=== PATIENT | male | born 1955 | race Caucasian/White ===

== ENCOUNTER → 2017-11-18 15:06 | Outpatient (CLI) | payer OTHER, SELFPAY ==
[2017-11-18 17:58] LABS: Hemoglobin A1c 5.3 % (4.2-6.3)
[2017-11-20 12:24] LABS: Hep C Antibodies <0.1 s/co ratio (0.0-0.9)
== END ==
PROVIDERS: Family Provider Family Medicine; PCP Family Medicine; Visit Provider Family Medicine
DX: R73.01 Impaired fasting glucose (principal); R53.83 Other fatigue; Z92.89 Personal history of other medical treatment
CPT/HCPCS: 36415; 83036; 86803

== ENCOUNTER → 2017-11-24 15:32 | Outpatient (CLI) | payer OTHER, SELFPAY ==
--- NOTE | 2017-11-24 15:53 | EKG12_ITS ---
Test Reason : PRE OP Blood Pressure : / mmHG Vent. Rate : 078 BPM Atrial Rate : 078 BPM P-R Int : 164 ms QRS Dur : 094 ms QT Int : 372 ms P-R-T Axes : 070 049 060 degrees QTc Int : 424 ms Sinus rhythm with marked sinus arrhythmia with junctional escape complexes Nonspecific T wave abnormality Abnormal ECG Confirmed by CHIQUITA LUNA, ESTRELLA ([id number]), assistant film editor SOPHIA CROWLEY ([id number]) on 11/25/2017 8:29:49 AM Referred By: Robby Riley Confirmed By:ESTRELLA PORRAS MD
[2017-11-24 16:29] LABS: Hematocrit 41.6 % (40-54); Hemoglobin 14.8 g/dl (13.0-16.5); Mean Corp Hgb Conc 35.6 g/gl (32-36); Mean Corpuscular Hgb 32.2 pg (27.0-32.0); Mean Corpuscular Volume 90.6 fL (80-94); Mean Platelet Vol. 9.8 fl (6.2-12.0); Platelet Count 213 K/mm3 (150-450); Red Blood Count 4.59 M/mm3 (4.6-6.2); White Blood Count 5.5 K/mm3 (4.4-11.0)
[2017-11-24 16:32] LABS: Scan Indicated on CBC? Y/N NO
[2017-11-24 17:02] LABS: Anion Gap 7 (5-15); BUN 20 mg/dL (7-18); BUN/Creat Ratio 24.6 RATIO (10-20); Calcium,Total 8.7 mg/dL (8.5-10.1); Chloride 109 mmol/L (98-107); Creatinine, Serum 0.81 mg/dL (0.70-1.30); EST Glomerular Filtration Rate 102 mL/min (>60); Est Glom Filt Rate - Afr Amer 123 mL/min (>60); Glucose 134 mg/dL (74-106); Potassium 4.1 mmol/L (3.5-5.1); Sodium Level 142 mmol/L (136-145)
== END ==
PROVIDERS: Family Provider Family Medicine; PCP Family Medicine; Visit Provider Orthopaedic Surgery
DX: Z01.810 Encounter for preprocedural cardiovascular examination (principal)
CPT/HCPCS: 36415; 80048; 85027; 93005

== ENCOUNTER → 2018-05-14 11:57 | Outpatient (CLI) | payer OTHER, SELFPAY ==
[2018-05-18 16:09] LABS: Testosterone, Free 16.41 ng/dL (5.00-21.00)
[2018-05-19 08:30] LABS: Testosterone, % Free 2.93 % (1.50-4.20); Testosterone, Total 560 ng/dL (264-916)
== END ==
PROVIDERS: Family Provider Family Medicine; PCP Family Medicine; Visit Provider Family Medicine
DX: E29.1 Testicular hypofunction (principal); R53.83 Other fatigue
CPT/HCPCS: 36415; 84402; 84403

== ENCOUNTER → 2018-05-20 10:41 | Outpatient (CLI) | payer OTHER, SELFPAY ==
[2018-05-24 09:09] LABS: Testosterone, % Free 2.37 % (1.50-4.20); Testosterone, Total 405 ng/dL (264-916)
== END ==
PROVIDERS: Family Provider Family Medicine; PCP Family Medicine; Visit Provider Family Medicine
DX: E29.1 Testicular hypofunction (principal)
CPT/HCPCS: 36415; 84402; 84403

== ENCOUNTER → 2018-05-28 11:20 | Outpatient (CLI) | payer OTHER, SELFPAY ==
[2018-05-28 15:40] LABS: Absolute Lymphocyte Count 1.78 X10^3/ul (0.83-4.51); Absolute Neutrophil Count 2.6 X10^3/uL (2.0-7.7); Basophil# 0.04 X10^3/uL; Basophil% 0.8 % (0-1); Eosinophil# 0.39 X10^3/uL; Eosinophils% 7.6 % (0-5); Hematocrit 39.6 % (40-54); Hemoglobin 13.8 g/dl (13.0-16.5); Lymphocyte # 1.78 X10^3/ul (4.0); Lymphocyte % 34.9 % (19-41); Mean Corp Hgb Conc 34.8 g/gl (32-36); Mean Corpuscular Hgb 31.2 pg (27.0-32.0); Mean Corpuscular Volume 89.6 fL (80-94); Mean Platelet Vol. 9.7 fl (6.2-12.0); Monocyte# 0.29 X10^3/uL; Monocyte% 5.7 % (0-10); Neutrophil # 2.59 X10^3/uL (2.7-7.7); Neutrophil % 50.8 % (47-70); Platelet Count 268 K/mm3 (150-450); RBC Distribution Width CV 12.2 % (11.6-14.6); RBC Distribution Width SD 39.1 fl (35.1-43.9); Red Blood Count 4.42 M/mm3 (4.6-6.2); White Blood Count 5.1 K/mm3 (4.4-11.0)
[2018-05-28 15:42] LABS: POSITIVE COUNT NO; POSITIVE DIFFERENTIAL NO; POSITIVE MORPHOLOGY NO
[2018-05-28 16:11] LABS: ALB/GLOB Ratio 1.3 RATIO (0.9-2.4); AST(SGOT) 15 U/L (15-37); Alanine Aminotransfer ALT/SGPT 28 U/L (16-61); Alkaline Phosphatase 91 U/L (45-117); Anion Gap 10 (5-15); BUN 16 mg/dL (7-18); BUN/Creat Ratio 19.5 RATIO (10-20); Chloride 103 mmol/L (98-107); Creatinine, Serum 0.82 mg/dL (0.70-1.30); EST Glomerular Filtration Rate 100 mL/min (>60); Est Glom Filt Rate - Afr Amer 122 mL/min (>60); Glucose 91 mg/dL (74-106); Potassium 4.2 mmol/L (3.5-5.1); Sodium Level 141 mmol/L (136-145); Thyroid Stim Hormone (TSH) 0.97 uIU/mL (0.358-3.74)
[2018-05-29 10:00] LABS: Vitamin B12 439 pg/mL (211-911); Vitamin D,25 Hydroxy 32.1 ng/mL (29.95-100.01)
== END ==
PROVIDERS: Family Provider Family Medicine; PCP Family Medicine; Visit Provider Family Medicine
DX: I10 Essential (primary) hypertension (principal); R53.83 Other fatigue
CPT/HCPCS: 80053; 82306; 82607; 84439; 84443; 85025

== ENCOUNTER → 2018-09-01 17:25 | Outpatient (CLI) | payer OTHER, SELFPAY ==
--- NOTE | 2018-09-01 17:25 | LES_PTH ---
PATIENT: WAQAR MONAHAN LOC: [facility] U#:[id number] AGE/SX: 70/M ROOM: RE09/01/[address]: Dr. Guy Gama, : 1955 BED: DIS: SPEC #: [id number] RECD: 09/02/18 12:04 STATUS: EMMA NATASHA #: [id number] JOSTIN: 09/01/18 17:[address]: Guy Gama DEPT: SURGICAL PATHOLOGY RECD BY: Fercho Ferrell Tissues: Skin of back, NOS Procedures: Surgery Specimen Level IV HEADER OPERATION: Punch biopsy, mole back PRE-OP DIAGNOSIS: Changing nevus on back POST-OP DIAGNOSIS: Suspect SK, rule out melanoma TISSUE SUBMITTED: 5 mm punch central lower back MICROSCOPIC DIAGNOSIS Center lower back, punch biopsy: Consistent with pigmented seborrheic keratosis. Negative for melanocytic lesion. Negative for malignancy. SJ:dena 09/03/18 COMMENT Clinical correlation and appropriate followup are necessary. MICROSCOPIC DESCRIPTION Slides are reviewed. GROSS DESCRIPTION Received is one container labeled with the patient's name and not further designated. The specimen consists of a piece of baird-brown skin measuring 0.5 x 0.3 x 0.2 cm. The entire specimen is submitted in one cassette. BLANCHE:dena 09/02/18 TC:1 CPT: 22140
== END ==
PROVIDERS: Family Provider Family Medicine; PCP Family Medicine; Referring Provider Family Medicine; Visit Provider Family Medicine
DX: D22.5 Melanocytic nevi of trunk (principal)
CPT/HCPCS: 88305

== ENCOUNTER → 2018-10-26 16:02 | Outpatient (CLI) | payer OTHER, SELFPAY ==
--- NOTE | 2018-10-26 16:10 | RAD_ITS ---
STUDY: X-RAY - LUMBAR SPINE REASON FOR EXAM: Male, 63 years old. CHRONIC BACK PAIN. NKI TECHNIQUE: 5 view(s) of the lumbar spine were obtained. COMPARISON: None FINDINGS: Normal lumbar lordosis. There is multilevel endplate spondylosis of the lumbar vertebrae. There is multi-level degenerative disc disease with multi-level disc space narrowing. The soft tissue structures are unremarkable. RAD/L/S Spine Min 4 Views IMPRESSION: Degenerative changes of the spine. Electronically Signed: Amber Resendiz MD at 11:08 EST Tel , Service support ,
--- NOTE | 2018-10-26 16:10 | RAD_ITS ---
STUDY: X-RAY - CERVICAL SPINE REASON FOR EXAM: Male, 63 years old. CHRONIC BACK PAIN. NKI TECHNIQUE: 5 view(s) of the cervical spine were obtained. COMPARISON: None FINDINGS: Normal cervical lordosis. There is multi-level endplate spondylosis. There is multi-level degenerative disc disease with multilevel disc space narrowing. The soft tissue structures are unremarkable. RAD/Cerv Spine 4 or 5 Views IMPRESSION: Degenerative changes of the spine. Electronically Signed: Amber Resendiz MD at 11:08 EST Tel , Service support ,
== END ==
PROVIDERS: Family Provider Family Medicine; PCP Family Medicine; Referring Provider Family Medicine; Visit Provider Family Medicine
DX: M54.17 Radiculopathy, lumbosacral region (principal); M54.12 Radiculopathy, cervical region
CPT/HCPCS: 72050; 72110

== ENCOUNTER 2018-11-13 08:11 | Emergency (ER) | payer OTHER, SELFPAY ==
[2018-11-13 08:12] VITALS: BP 173/98; PULSE 115; RESP 24; TEMP 36.7; O2SAT 100; BMI 28.2
--- NOTE | 2018-11-13 08:21 | CT_ITS ---
STUDY: CT ABDOMEN AND PELVIS WITHOUT CONTRAST REASON FOR EXAM: Male, 63 years old. Nausea and vomiting. Right lower quadrant pain. RADIATION DOSAGE (If Supplied By Facility): CTDIvol = ( 11.23 ) mGy, DLP = ( 569.57 ) mGycm TECHNIQUE: Transaxial images were obtained from the dome of the diaphragm to the symphysis pubis without oral contrast, and without intravenous contrast. Sagittal and coronal images were reconstructed. Individualized dose optimization techniques were used for this CT. COMPARISON: None. FINDINGS: The visualized lung bases are unremarkable. Coronary artery calcification. Normal liver. Normal gallbladder and extrahepatic biliary system. Normal spleen. Normal pancreas. Normal bilateral adrenal glands. Mild degree of the right hydronephrosis due to a 3.4 mm calculus at the right ureterovesical junction. Findings suggestive of left parapelvic cysts. Nonspecific bilateral perinephric stranding. There is a small hiatal hernia. Normal small intestine. Normal colon. The appendix is visualized and appears normal. There is a 3.5 cm x 3.1 cm well-defined cystic structure in the peritoneal fat in the left upper quadrant posterior to the greater curvature of the stomach and just [place] to the tail the pancreas. This may represent a mesenteric cyst. There is scattered atherosclerotic calcification of the abdominal aorta, without a demonstrated aneurysm. Normal inferior vena cava. Normal retroperitoneum. Normal urinary bladder. There is a small umbilical hernia containing fat. There are degenerative changes of the visualized lumbar spine. Loss of the normal lumbar lordosis. CT/Abdomen/Pelvis without Cont IMPRESSION: 3.4 mm calculus at the right ureterovesical junction causing a mild degree of right hydronephrosis. Findings suggestive of left parapelvic renal cysts. There is a 3.5 cm x 3.1 cm cystic structure in the peritoneal fat in the left upper quadrant as described. This may represent a mesenteric cyst. Electronically Signed: Ziggy Mays MD at 9:26 EST , Service support ,
[2018-11-13] MEDS: 0.9% Normal Saline 1,000 ML 150 ML IV (08:27)
[2018-11-13] MEDS: Ketorolac 30 MG/ML Syringe IV (08:27)
[2018-11-13] MEDS: Ondansetron 4 MG/2 ML Vial IV (08:27)
[2018-11-13] MEDS: Morphine 4 MG/ML Syringe IV (08:27)
--- NOTE | 2018-11-13 08:28 | ED.VISSUMM ---
- ER Visit Summary Date of Service: 11/13/18 Chief Complaint: Right lower quadrant pain History of Present Illness: The patient is a 63 M who had right lower quadrant pain 2 days ago, on the . It spontaneously resolved. Pain returned today and is more severe with nausea and vomiting. He denies difficulty with urination or bowel movements. No fever. No prior abdominal surgeries. No history of kidney stones. Physical Examination: Vital signs significant for blood pressure of 173/98 and a heart rate of 115. Patient sitting upright in bed. He has difficulty finding a position of comfort. Head neck examination unremarkable. Heart is tachycardic and regular. Lungs sounds clear. Abdomen is soft with tenderness in the right lower quadrant. He has guarding. He does have CVA tenderness on the right. Test Results: CBC is normal. Chemistry studies reveal a potassium 3.4. Renal function is normal. CT flank shows a 3.4 mm calculus at the right UVJ causing mild hydronephrosis. Emergency Department Course and Treatment: Patient is given IV fluids, morphine, Toradol, Zofran. After returning from CT scan he did receive 0.5 mg of Dilaudid. On repeat evaluation patient is resting comfortably. At this time he is not been able to provide a urine sample but has been urinating without difficulty. He has not had dysuria or fever. He will be treated with [place], Zofran, and Flomax. He does take meloxicam regularly and will continue this. Patient had previously seen Dr. Garza and will be referred to Dr. West for follow-up. Treatment Plan: [] Disposition: Discharge Impression: Right ureterolithiasis This note was generated with [employer] dictation software. It may contain incorrect words, spelling, and punctuation that were not noted in review of the chart prior to signing ED Disposition - Plan for ED Patient: Chief Complaint: Abd Pain Referrals: Guy Gama DO [Primary Care Provider] -
[2018-11-13 08:35] LABS: Absolute Lymphocyte Count 2.94 X10^3/ul (0.83-4.51); Basophil# 0.06 X10^3/uL; Basophil% 0.9 % (0-1); Eosinophil# 0.27 X10^3/uL; Hematocrit 42.8 % (40-54); Hemoglobin 14.8 g/dl (13.0-16.5); Lymphocyte # 2.94 X10^3/ul (4.0); Mean Corp Hgb Conc 34.6 g/gl (32-36); Mean Corpuscular Hgb 31.1 pg (27.0-32.0); Mean Corpuscular Volume 89.9 fL (80-94); Mean Platelet Vol. 9.5 fl (6.2-12.0); Monocyte# 0.38 X10^3/uL; Monocyte% 5.7 % (0-10); Neutrophil # 3.01 X10^3/uL (2.7-7.7); Neutrophil % 45.1 % (47-70); Platelet Count 226 K/mm3 (150-450); RBC Distribution Width CV 12.2 % (11.6-14.6); RBC Distribution Width SD 39.5 fl (35.1-43.9); Red Blood Count 4.76 M/mm3 (4.6-6.2); White Blood Count 6.7 K/mm3 (4.4-11.0)
[2018-11-13 08:36] LABS: POSITIVE COUNT NO; POSITIVE DIFFERENTIAL NO; POSITIVE MORPHOLOGY NO
[2018-11-13 08:49] LABS: AST(SGOT) 14 U/L (15-37); Alanine Aminotransfer ALT/SGPT 25 U/L (16-61); Albumin, Serum 4.1 g/dL (3.2-5.0); Alkaline Phosphatase 92 U/L (45-117); Anion Gap 11 (5-15); BUN 23 mg/dL (7-18); BUN/Creat Ratio 18.7 RATIO (10-20); Bilirubin, Direct 0.14 mg/dL (0.00-0.30); Chloride 105 mmol/L (98-107); Creatinine, Serum 1.23 mg/dL (0.70-1.30); EST Glomerular Filtration Rate 63 mL/min (>60); Est Glom Filt Rate - Afr Amer 76 mL/min (>60); Estimated Creatinine Clearance 60.67 ml/min; Globulin 3.1 g/dL (2.2-4.2); Glucose 137 mg/dL (74-106); Potassium 3.4 mmol/L (3.5-5.1); Protein, Total 7.2 g/dL (6.4-8.2); Sodium Level 139 mmol/L (136-145)
[2018-11-13] MEDS: HYDROmorphone 0.5 MG/0.5 ML SYRINGE IV (09:08)
--- NOTE | 2018-11-13 10:25 | ED.DEP ---
ED Disposition - Plan for ED Patient: Disposition: Home or Assisted Living Chief Complaint: Abd Pain Instructions: ED Stone Renal W Colic Prescriptions: Hydrocodone Bitart/Apap 5-325 [[place] 5MG-325MG] 1 tablet PO Q4H PRN PRN 3 Days #14 tablet PRN Reason: Pain Ondansetron [Zofran Odt] 4 mg PO Q8H PRN PRN #10 tablet PRN Reason: Nausea Tamsulosin HCl [Flomax] 0.4 mg PO DAILY #7 capsule Referrals: Chun West MD [STAFF PHYSICIAN] - As Needed
[2018-11-13 10:33] VITALS: PULSE 73; RESP 16; O2SAT 100
[2018-11-13 10:43] LABS: Bacteria 0 SEEN /hpf (None Seen); Mucous, Urine 0 SEEN /hpf (<or=2+)
[2018-11-13 10:56] LABS: Color, Urine Yellow (Yellow); Glucose, Dipstick Normal (Normal); Ketone-Dipstick Negative (Negative); Leukocyte Esterase-Dipstick 25 /ul (Negative); Nitrite-Dipstick Negative (Negative); Occult Blood-Urine 10 /ul (Negative); Protein-Dipstick Negative (Negative); Specific Gravity, Urine 1.015 (1.002-1.030); Urine Bilirubin Dipstick Negative (Negative); Urine Clarity Sl. Cloudy (Clear); Urine Urobilinogen Normal (Normal)
[2018-11-13 11:03] LABS: Red Blood Cells-Urine 0-5 SEEN /hpf (0-5)
[2018-11-13 11:04] LABS: Squamous Epithelial Cells - UA 0-5 SEEN /hpf (0-5); White Blood Cells 0-5 SEEN /hpf (0-5)
== END 2018-11-13 10:41 | disposition home or self-care (01) ==
PROVIDERS: Emergency Provider Emergency Medicine; Family Provider Family Medicine; PCP Family Medicine
DX: N13.2 Hydronephrosis with renal and ureteral calculous obstruction (principal); I10 Essential (primary) hypertension; M19.90 Unspecified osteoarthritis, unspecified site; R00.0 Tachycardia, unspecified; Z79.82 Long term (current) use of aspirin; Z79.899 Other long term (current) drug therapy
CPT/HCPCS: 74176; 80048; 80076; 81001; 85025; 96361; 96374; 96375; 99284; J7030; A4216; J2405

== ENCOUNTER → 2018-11-18 08:33 | Outpatient (CLI) | payer OTHER, SELFPAY ==
[2018-11-13 08:12] VITALS: BMI 28.2
--- NOTE | 2018-11-18 08:55 | RAD_ITS ---
STUDY: X-RAY - ABDOMEN/PELVIS REASON FOR EXAM: Male, 63 years old. Question of ureterovesical junction stone now and bladder. TECHNIQUE: Single AP view of the abdomen / pelvis. COMPARISON: CT abdomen and pelvis without contrast November 13, 2018 FINDINGS: Non-visualized lung bases. There is an unremarkable bowel gas pattern. There is no demonstrated free abdominal air. The visualized liver, spleen and kidneys are grossly normal in size and morphology. There are calcified phleboliths in the pelvis. The small stone seen by CT at the right ureterovesical junction is not clearly identified here, possibly superimposed on the lower sacrum/coccyx. There are stable multilevel degenerative changes of the visualized lumbar spine. RAD/Abdomen Single View IMPRESSION: 1. The small stone seen previously at the right ureterovesical junction is not clearly identified here, possibly superimposed on the lower sacrum/upper coccyx. If clinical indication to document a stone in the bladder warrants additional imaging, one might consider an upright view of the pelvis, possibly with mild craniocaudal angulation to avoid superimposition of the bladder on the pubic bone, or bladder ultrasound. 2. Nonspecific bowel gas pattern. 3. Stable degenerative changes of the spine. Electronically Signed: Kiet Tomas MD at 16:53 EST , Service support ,
== END ==
PROVIDERS: Family Provider Family Medicine; PCP Family Medicine; Referring Provider Family Medicine; Visit Provider Family Medicine
DX: N20.9 Urinary calculus, unspecified (principal)
CPT/HCPCS: 74018

== ENCOUNTER → 2019-03-25 09:39 | Outpatient (CLI) | payer OTHER, SELFPAY ==
[2019-03-25 10:58] LABS: PSA,Total - Annual Screen 1.45 ng/mL (0.00-4.00)
== END ==
PROVIDERS: Family Provider Family Medicine; PCP Family Medicine; Referring Provider Nurse Practitioner Adult Health; Visit Provider Nurse Practitioner Adult Health
DX: Z12.5 Encounter for screening for malignant neoplasm of prostate (principal)
CPT/HCPCS: 36415; 84153; G0103

== ENCOUNTER → 2019-04-12 13:24 | Outpatient (CLI) | payer OTHER, SELFPAY ==
--- NOTE | 2019-04-12 13:40 | MRI_ITS ---
STUDY: MRI CERVICAL SPINE WITHOUT CONTRAST REASON FOR EXAM: Male, 63 years old. Pain and numbness for 20 years TECHNIQUE: Standardized fat and water weighted pulse sequences were obtained in the sagittal and axial planes. COMPARISON: None FINDINGS: Craniocervical junction and cervical spine are intact and aligned. There is grade 1 degenerative retrolisthesis of C3 on C4 and C5 on C6, both less than 2 mm. Marrow is normal with superimposed subchondral degenerative change. There is multilevel disc and endplate degeneration, age-appropriate. Paraspinous soft tissues are normal. There is multilevel mild spondylotic canal stenosis and cord compression, at C3-C4, C4-C5, C5-C6. There are scattered bilateral various degree foraminal stenoses. Spinal cord is normal in size and signal with minor flattening of the compressing levels. MRI/Spine Cervical (Routine) IMPRESSION: 1. Spondylosis with multilevel mild cord compression. 2. Multilevel bilateral foraminal stenosis. Electronically Signed: Maty Bo, at 15:58 EDT Tel , Service support ,
--- NOTE | 2019-04-12 14:56 | CT_ITS ---
STUDY: CT ABDOMEN AND PELVIS WITH AND WITHOUT CONTRAST REASON FOR EXAM: Male, 63 years old. Hematuria evaluation RADIATION DOSAGE (If Supplied By Facility): CTDIvol = ( 18.16 ) mGy, DLP = ( 2320.5 ) mGycm TECHNIQUE: Transaxial images were obtained from the dome of the diaphragm to the symphysis pubis without oral contrast. 100 IV Isovue 250 was administered. Sagittal and coronal images were reconstructed. Individualized dose optimization techniques were used for this CT. COMPARISON: 13 November 2018, FINDINGS: The visualized lung bases are unremarkable. The visualized portions of the heart are within normal limits. Normal liver. Normal gallbladder and extrahepatic biliary system. Normal spleen. Normal pancreas. Normal bilateral adrenal glands. There are no urinary calculi. There are no solid renal masses. There are central renal sinus cysts, a benign incidental finding. Ureters and bladder are normal. There is no intestinal obstruction. Evaluation of the gastrointestinal tract is limited due to lack of cleansing and distention. There is possibly diffuse thickening of the sigmoid, likely chronic diverticulosis. Normal abdominal aorta. Normal inferior vena cava. Normal retroperitoneum. Normal urinary bladder. Normal abdominal wall. There degenerative changes in the lumbar spine. CT/CT Abd/Pelvis W/WO Contrast IMPRESSION: 1. Unremarkable urinary system. 2. Sigmoid diverticulosis, no diverticulitis. Electronically Signed: Maty Bo, at 16:07 EDT Tel , Service support ,
[2019-04-12 15:16] LABS: EGFR FINGERSTICK > 60.0000 mL/min (>60)
== END ==
PROVIDERS: Family Provider Family Medicine; PCP Family Medicine; Referring Provider Family Medicine; Visit Provider Family Medicine
DX: R31.0 Gross hematuria (principal); M50.10 Cervical disc disorder with radiculopathy, unspecified cervical region; M50.30 Other cervical disc degeneration, unspecified cervical region
CPT/HCPCS: 72141; 74178; Q9967

== ENCOUNTER → 2020-09-13 08:18 | Outpatient (CLI) | payer OTHER, SELFPAY | PROVIDERS: PCP Family Medicine; Referring Provider Family Medicine; Visit Provider Family Medicine | DX: R00.0 Tachycardia, unspecified (principal) | CPT/HCPCS: 93225; 93226 ==

== ENCOUNTER → 2020-11-10 15:11 | Outpatient (CLI) | payer OTHER, SELFPAY ==
[2020-10-26 16:23] VITALS: BMI 29.6
[2020-11-10 17:37] LABS: Absolute Lymphocyte Count 3.35 X10^3/uL (0.83-4.51); Absolute Neutrophil Count 2.6 X10^3/uL (2.0-7.7); Basophil# 0.05 X10^3/uL; Basophil% 0.8 % (0-1); Eosinophil# 0.16 X10^3/uL; Eosinophils% 2.4 % (0-5); Hematocrit 44.9 % (40-54); Hemoglobin 15.3 g/dL (13.0-16.5); Lymphocyte # 3.35 X10^3/ul (4.0); Lymphocyte % 51.2 % (19-41); Mean Corp Hgb Conc 34.1 g/dL (32-36); Mean Corpuscular Hgb 30.8 pg (27.0-32.0); Mean Corpuscular Volume 90.3 fL (80-94); Mean Platelet Vol. 9.5 fl (6.2-12.0); Monocyte# 0.33 X10^3/uL; NRBC Flagged by Analyzer 0 % (0-5); Neutrophil # 2.63 X10^3/uL (2.7-7.7); Neutrophil % 40.3 % (47-70); Platelet Count 253 K/mm3 (150-450); RBC Distribution Width CV 11.4 % (11.6-14.6); RBC Distribution Width SD 37.8 fl (35.1-43.9); Red Blood Count 4.97 M/mm3 (4.6-6.2); White Blood Count 6.5 K/mm3 (4.4-11.0)
[2020-11-10 17:53] LABS: ALB/GLOB Ratio 1.2 RATIO (0.9-2.4); AST(SGOT) 19 U/L (15-37); Alanine Aminotransfer ALT/SGPT 36 U/L (16-61); Albumin, Serum 3.9 g/dL (3.2-5.0); Alkaline Phosphatase 96 U/L (45-117); Anion Gap 4 (5-15); BUN 18 mg/dL (7-18); BUN/Creat Ratio 19.5 RATIO (10-20); Calcium,Total 8.6 mg/dL (8.5-10.1); Chloride 104 mmol/L (98-107); Cholesterol 243 mg/dL (200); Creatinine, Serum 0.92 mg/dL (0.70-1.30); EST Glomerular Filtration Rate 87 mL/min (>60); Est Glom Filt Rate - Afr Amer 105 mL/min (>60); Globulin 3.2 g/dL (2.2-4.2); Glucose 85 mg/dL (74-106); High Density Lipoprotein 40 mg/dL; PSA,Total - Annual Screen 1.14 ng/mL (0.00-4.00); Potassium 3.7 mmol/L (3.5-5.1); Protein, Total 7.1 g/dL (6.4-8.2); Sodium Level 138 mmol/L (136-145); Triglycerides 245 mg/dL; Very Low Density Lipoprotein 49 mg/dL (5-40)
== END ==
PROVIDERS: PCP Family Medicine; Visit Provider Family Medicine
DX: Z00.00 Encounter for general adult medical examination without abnormal findings (principal); Z12.5 Encounter for screening for malignant neoplasm of prostate
CPT/HCPCS: 36415; 80053; 80061; 84153; 85025; G0103

== ENCOUNTER → 2020-11-15 06:01 | Outpatient (CLI) | payer OTHER, SELFPAY ==
[2020-10-26 16:23] VITALS: BMI 29.6
--- NOTE | 2020-11-15 06:04 | ECHOD_ITS ---
Reason For Study: PALPITATIONS Procedure This was a 2D Doppler, Color Flow transthoracic echocardiogram. The exam was of adequate technical quality. Exam performed in department. Left Ventricle Normal LV size. Left ventricular systolic function is normal. The estimated ejection fraction is 65 %. No evidence for diastolic dysfunction. No regional wall motion abnormalities noted. Right Ventricle Normal RV size. Normal systolic function. Atria Normal left atrium. Normal right atrium. No doppler evidence for ASD. Bubble contrast study negative for right to left interatrial shunt. Mitral Valve There is no mitral annular calcification. Normal mitral valve. Trivial mitral valve insufficiency. Tricuspid Valve Normal tricuspid valve. Trivial tricuspid valve insufficiency. Aortic Valve Trisinus/trileaflet aortic valve. Normal aortic valve. Pulmonic Valve The pulmonic valve is not well visualized. Great Vessels Normal sized aortic root. Pericardium/Pleural No pericardial effusion. Medication Performed a rapid injection of agitated mix of 9 cc saline and 1cc air to assess for atrial septal defect. MMode/2D Measurements & Calculations LVIDd: 5.0 cm IVSd: 0.84 cm Ao root diam: 3.1 cm LVIDs: 3.2 cm LVPWd: 0.91 cm RVDd: 3.4 cm FS: 35.4 % LAV(MOD-bp): 41.0 ml LVAd ap4: 28.7 cm2 SV(MOD-sp4): 53.8 ml LAV(MOD-bp) Indexed: 20.3 ml/m2 EDV(MOD-sp4): 78.6 ml LAV(MOD-sp2): 40.9 ml EDV(sp4-el): 81.2 ml LAV(MOD-sp4): 36.9 ml LVAs ap4: 14.3 cm2 ESV(MOD-sp4): 24.9 ml ESV(sp4-el): 23.3 ml EF(MOD-sp4): 68.4 % EF(sp4-el): 71.3 % SV(sp4-el): 57.9 ml LA A4 area: 15.5 cm2 LA dimension(2D): 3.4 cm RA A4 area: 16.0 cm2 Time Measurements MV dec time: 0.15 sec Doppler Measurements & Calculations MV E max demarco: 73.0 cm/sec Lat Peak E' Demarco: 11.2 cm/sec Med Peak E' Demarco: 8.3 cm/sec MV A max demarco: 87.4 cm/sec E/E' lat: 6.5 E/E' med: 8.7 MV E/A: 0.83 Ao V2 max: 125.2 cm/sec LV V1 max: 102.2 cm/sec PA V2 max: 87.0 cm/sec Ao max P.3 mmHg LV V1 max P.2 mmHg Interpretation Summary Left ventricular systolic function is normal. The estimated ejection fraction is 65 %. Trivial mitral valve insufficiency. Trivial tricuspid valve insufficiency. No evidence for diastolic dysfunction. Bubble contrast study negative for right to left interatrial shunt. Ordering Physician: Brooks Kruse Referring Physician: Guy Gama Performed By: Vanessa Quick RDCS, RVT
--- NOTE | 2020-11-15 13:38 | STRESSREP ---
Stress Test Report Date: 11-15-2020 Procedure: Exercise tolerance test/imaging study Indications: Palpitations/tachycardia; hyperlipidemia; hypertension; family history of CAD Consent: Per the patient Procedure: The patient exercised on a Ever protocol for 8 minutes and 18 seconds completing Stage II and 2 minutes and 18 seconds of Stage III achieving a peak heart rate of 151 bpm (98% predicted maximal heart rate) with a peak blood pressure 198/82 mmHg and a peak MET capacity of 9 METs. The baseline ECG demonstrated normal sinus rhythm. The peak exercise ECG demonstrated no obvious ECG changes. There was an isolated PVC during exercise. The functional capacity was considered good. There was no complaint of chest discomfort during exercise or recovery. The examination was discontinued secondary to dyspnea. Impression: 1. Technically adequate (percent predicted maximal heart rate greater than 85%) exercise tolerance test 2. Peak exercise ECG with no obvious ECG changes 3. There was an isolated PVC during exercise 4. Nuclear images pending Myocardial perfusion imaging study: Technique: The patient was injected with 11.8 mCi of technetium 99m Cardiolite and subsequently rest SPECT Cardiolite nuclear imaging was obtained in the horizontal long, vertical long, and short axis views. The patient exercised on a Ever protocol for 8 minutes and 18 seconds completing Stage II and 2 minutes and 18 seconds of Stage III achieving a peak heart rate of 151 bpm (98% predicted maximal heart rate) with a peak blood pressure 198/82 mmHg and a peak MET capacity of 9 METs. The patient was injected with 33.7 mCi of technetium 99m Cardiolite and subsequently stress SPECT Cardiolite nuclear imaging was obtained in the horizontal long, vertical long, and short axis views. A gated Cardiolite study at peak stress was obtained. Interpretation: Rest and stress SPECT Cardiolite nuclear imaging status post realignment, normalization, and attenuation correction, demonstrates the appearance of relative uniform tracer uptake and myocardial perfusion appearing within normal limits. There is end systolic thickening and brightening. The gated Cardiolite study demonstrates myocardial thickening and inward wall motion. The reported LVEF is 66%. Impression: 1. Rest and stress SPECT Cardiolite nuclear imaging demonstrate relative uniform tracer uptake and myocardial perfusion appearing within normal limits. 2. The gated Cardiolite study reports an LVEF of 66%. This note was generated with [employer] software. It may contain incorrect words, spelling, and punctuation that were not noted in checking the note before signing.
== END ==
PROVIDERS: PCP Family Medicine; Referring Provider Internal Medicine Cardiovascular Disease; Visit Provider Internal Medicine Cardiovascular Disease
DX: R00.2 Palpitations (principal); R00.0 Tachycardia, unspecified; I10 Essential (primary) hypertension; E78.5 Hyperlipidemia, unspecified; Z82.49 Family history of ischemic heart disease and other diseases of the circulatory system
CPT/HCPCS: 78452; 93017; 93306; A9500; A4216

== ENCOUNTER → 2021-10-10 | Outpatient (CLI) | payer OTHER, SELFPAY | END | disposition home or self-care (01) | PROVIDERS: PCP Family Medicine; Referring Provider Family Medicine; Visit Provider Family Medicine | DX: U07.1 COVID-19 (principal) | CPT/HCPCS: 87635; U0005; U0003 ==

== ENCOUNTER 2021-10-15 14:34 | Outpatient (CLI) | payer OTHER, SELFPAY ==
[2021-10-15 14:49] VITALS: BP 146/86; PULSE 58; RESP 16; TEMP 36.4; O2SAT 99; BMI 28.5
[2021-10-15] MEDS: 0.9% Saline Lock 10 ML Syringe IV (14:52)
[2021-10-15 15:58] VITALS: BP 146/76; PULSE 59; RESP 16; TEMP 36.9; O2SAT 98
[2021-10-15 16:47] VITALS: BP 135/87; PULSE 57; RESP 16; TEMP 36.8; O2SAT 98
== END 2021-10-15 17:03 | disposition home or self-care (01) ==
LOC: MS3OUT 14:35 → MS3 14:35
PROVIDERS: PCP Family Medicine; Referring Provider Nurse Practitioner Adult Health; Visit Provider Nurse Practitioner Adult Health
DX: Z23 Encounter for immunization (principal); U07.1 COVID-19
CPT/HCPCS: J7050; M0245; Q0245; A4216

== ENCOUNTER → 2022-12-10 | Outpatient (CLI) | payer OTHER, SELFPAY ==
--- NOTE | 2022-12-10 08:50 | RAD_ITS ---
INDICATION: PERSISTENT COUGH EXAMINATION/TECHNIQUE: X-RAY - XR Chest 2 Views COMPARISON: 03/20/2017. FINDINGS: LINES/DEVICES: None. LUNGS: No consolidation, edema or effusion. No pneumothorax. MEDIASTINUM AND CARDIOVASCULAR STRUCTURES: Cardiac silhouette not enlarged. Central airways and mediastinal contour are unremarkable. BONES AND SOFT TISSUES: Unremarkable. RAD/Chest PA and Lateral IMPRESSION: No radiographic evidence of acute cardiopulmonary disease. Electronically Signed: Ann Marie Magana MD at 23:55 EST Reading Location ID and State: [id number] / Tel , Service support ,
[2022-12-10 09:38] LABS: Absolute Lymphocyte Count 3.72 X10^3/uL (0.83-4.51); Absolute Neutrophil Count 2.4 X10^3/uL (2.0-7.7); Basophil# 0.04 X10^3/uL; Basophil% 0.6 % (0-1); Eosinophils% 1.5 % (0-5); Hematocrit 45.3 % (40-54); Hemoglobin 15.4 g/dL (13.0-16.5); Lymphocyte # 3.72 X10^3/ul (0.83-4.51); Lymphocyte % 56.2 % (19-41); Mean Corpuscular Hgb 30.6 pg (27.0-32.0); Mean Corpuscular Volume 90.1 fL (80-94); Mean Platelet Vol. 9.4 fl (6.2-12.0); Monocyte# 0.31 X10^3/uL; Monocyte% 4.7 % (0-10); NRBC Flagged by Analyzer 0 % (0-5); Neutrophil # 2.42 X10^3/uL (2.7-7.7); Neutrophil % 36.5 % (47-70); Platelet Count 237 K/mm3 (150-450); RBC Distribution Width CV 11.8 % (11.6-14.6); RBC Distribution Width SD 38.5 fl (35.1-43.9); Red Blood Count 5.03 M/mm3 (4.6-6.2); White Blood Count 6.6 K/mm3 (4.4-11.0)
[2022-12-10 10:12] LABS: CRP < 2.90 mg/L (0.0-3.0)
== END | disposition home or self-care (01) ==
LOC: LAB 08:33
PROVIDERS: PCP Family Medicine; Referring Provider Family Medicine; Visit Provider Family Medicine
DX: R05.9 Cough, unspecified (principal)
CPT/HCPCS: 36415; 71046; 85025; 86140

== ENCOUNTER 2023-04-07 17:10 | Emergency (ER) | payer OTHER, SELFPAY ==
[2023-04-07 17:11] VITALS: BP 134/81; PULSE 94; RESP 17; TEMP 36.6; O2SAT 99; BMI 27.3
--- NOTE | 2023-04-07 17:20 | RAD_ITS ---
EXAM: XR CHEST, 1 VIEW CLINICAL INDICATION: chest pain TECHNIQUE: Frontal view of the chest. COMPARISON: 12.10.22 FINDINGS: LUNGS AND PLEURAL SPACES: Unremarkable. No consolidation or edema. No pneumothorax. No effusion. HEART: Unremarkable. Cardiac silhouette not enlarged. MEDIASTINUM: Central airways and mediastinal contour are unremarkable. BONES/JOINTS: Unremarkable. SOFT TISSUES: Unremarkable. RAD/Chest 1 View (Portable) IMPRESSION: No radiographic evidence of acute cardiopulmonary disease. Electronically Signed: Augustus Nash MD at 17:43 EDT ,
[2023-04-07 18:18] LABS: Absolute Lymphocyte Count 3.38 X10^3/uL (0.83-4.51); Absolute Neutrophil Count 5.3 X10^3/uL (2.0-7.7); Basophil# 0.07 X10^3/uL; Basophil% 0.7 % (0-1); Eosinophil# 0.17 X10^3/uL; Eosinophils% 1.8 % (0-5); Hematocrit 42.6 % (40-54); Hemoglobin 15.1 g/dL (13.0-16.5); Lymphocyte # 3.38 X10^3/ul (0.83-4.51); Lymphocyte % 35.9 % (19-41); Mean Corp Hgb Conc 35.4 g/dL (32-36); Mean Corpuscular Hgb 31.7 pg (27.0-32.0); Mean Corpuscular Volume 89.5 fL (80-94); Mean Platelet Vol. 8.8 fl (6.2-12.0); Monocyte# 0.49 X10^3/uL; Monocyte% 5.2 % (0-10); NRBC Flagged by Analyzer 0 % (0-5); Neutrophil # 5.27 X10^3/uL (2.7-7.7); Platelet Count 249 K/mm3 (150-450); RBC Distribution Width CV 11.6 % (11.6-14.6); RBC Distribution Width SD 37.7 fl (35.1-43.9); Red Blood Count 4.76 M/mm3 (4.6-6.2); White Blood Count 9.4 K/mm3 (4.4-11.0)
[2023-04-07 18:23] VITALS: BP 121/74; PULSE 61; RESP 19; O2SAT 98
--- NOTE | 2023-04-07 18:26 | EDS_ITS ---
HPI History of Present Illness Chief Complaint: Chest Pain Informant: patient Narrative Narrative: Patient presents with chest pain. Patient states that shortly after eating lunch about noon he started to get pain and he points right to the xiphoid area. He states occasionally it radiates just to the side a little bit. It does not go to the back. He has never gotten shortness of breath nausea vomiting lightheadedness or diaphoresis. It comes and goes. It lasts about 5 seconds at a time. Nothing specifically makes it come and go. He has never had this before. He has had what sounds like possible SVT. He had a stress test about 5 years ago that was negative. He has never had a heart catheterization. He has high blood pressure but no other known risk factor for heart disease. His father had a heart attack about 81 years old. Patient does not have cholesterol diabetes or smoking history. He has no recent travel surgery immobilization personal or family history of DVT or PE. He is not short of breath and has no pleuritic pain. No hemoptysis. No leg pain or swelling. Patient did have some coughing related to lisinopril and was switched from that medicine about 3 months ago. He is not certain what is his new antihypertensive. He also had a moist cough was bringing up some sputum in the morning. His doctor put him on azithromycin and Tessalon Perles. He just finished the azithromycin yesterday and the cough is much better. He never did have blood with this. [facility] Medical History (Updated 04/07/23 @ 22:[address] Navjot Dave MD) DDD (degenerative disc disease) Essential hypertension Sinus arrhythmia Tachycardia Home Medications gabapentin 300 mg capsule 300 mg PO QHS 11/13/18 [History Last Taken Unknown] meloxicam 15 mg tablet 15 mg PO QHS 11/13/18 [History Last Taken Unknown] fluoxetine 20 mg tablet 20 mg PO DAILY 10/16/20 [History Last Taken Unknown] lisinopril 20 mg-hydrochlorothiazide 12.5 mg tablet 0.5 tab PO DAILY 10/16/20 [History Last Taken Unknown] tadalafil 5 mg tablet (Cialis) 5 mg PO DAILY PRN sexual activity 10/26/20 [History Last Taken Unknown] Allergy/AdvReac Type Severity Reaction Status Date / Time No Known Allergies Allergy Verified 04/07/23 17:12 Family History Father Heart disease Myocardial infarction Surgical History History of bilateral knee replacement History of shoulder surgery Social History Smoking Status: Never smoker alcohol intake: current details: 3-4x weekly substance use type: does not use caffeine: Yes Type: coffee Number of servings: 2 ROS ROS ED ROS Narrative A complete review of systems was performed and is negative except as documented in the history of present illness. Some specific details below. Constitutional: No recent fevers or chills. EYE: No discharge, visual complaints, or pain. ENT: No difficulty swallowing. No swelling. No pain. No reflux symptoms. CV: See history of present illness. Respiratory: See history of present illness. Cough is improving. He is not having that now. GI: No abdominal pain. No nausea vomiting diarrhea. No blood in stool. : No frequency dysuria or hematuria. Musculoskeletal: No recent trauma. No pains. No swelling. Skin: No rash. Nondiaphoretic. Neuro: No weakness or numbness. Endocrine: No polyuria or polydipsia. EXAM Physical Exam Narrative Exam Narrative: CONSTITUTIONAL: Patient is nontoxic in appearance. The patient looks co mfortable. Work of breathing looks normal. HEENT: No notable trauma. Mucous membranes moist. No sinus tenderness. No indication of pain with swallowing. EYES: No conjunctival injection. No proptosis. NECK:No JVD. No stridor. CARDIOVASCULAR: Regular rate. Regular rhythm. No notable murmur. No JVD. Normal peripheral pulses. RESPIRATORY: No respiratory distress. Breathing is unlabored. No wheezes. No rhonchi. No rales. No pain with a deep breath. No chest wall tenderness. Saturations are normal at 99% on room air showing no hypoxia. GASTROINTESTINAL: Not distended. Bowel sounds are normal. No tenderness. No guarding. No rebound. No palpable mass. No bruit is heard. GENITOURINARY: No tenderness over the bladder. No CVA tenderness. MUSCULOSKELETAL: Atraumatic. No peripheral edema. No cord. No tenderness along the deep venous system. No asymmetry. No distended veins. NEUROLOGICAL: Patient is alert and appropriate. No focal deficit noted. SKIN: No noted rashes. No diaphoresis. PSYCHIATRIC: Patient is calm. Mood is appropriate. Const Vital Signs: 04/07/23 17:11 04/07/23 18:23 04/07/23 18:23 Temperature 97.9 F Temperature Source Temporal Pulse Rate 94 61 Respiratory Rate 17 19 H Respiratory Effort Blood Pressure 134/81 H 121/74 H Blood Pressure Mean 98 89 Pulse Ox 99 98 98 Oxygen Delivery Method Room Air Room Air Room Air 04/07/23 18:23 04/07/23 20:23 Temperature Temperature Source Pulse Rate 66 Respiratory Rate 18 Respiratory Effort Normal Non-Labored Blood Pressure 145/102 H Blood Pressure Mean 116 Pulse Ox 97 Oxygen Delivery Method Room Air Heart Score History: Slightly/Non-Suspicious ECG: Normal Age: >/= 65 years Risk Factors: 1 or 2 Risk Factors Troponin: </= Normal Limit Score: 3 MDM MDM MDM Narrative Medical decision making narrative: Patient CBC shows no acute process. Patient's electrolytes are normal showing no acute process. Patient's first troponin is 5 which is normal. Patient's repeat troponin is 4 which is also normal. My independent interpretation the patient's single view AP chest x-ray shows no acute process. Final reading is no evidence of acute cardiopulmonary disease. Patient has some lower chest epigastric area pain. This may even be from recent meds. But he is off these now. I think with his low heart score negative work- up he is safe for discharge. We discussed reasons to return and follow-up. Lab Data Attestation: I reviewed the patient's lab results. Labs: Laboratory Results - last 24 hr 04/07/23 04/07/23 04/07/23 18:05 18:05 20:24 WBC 9.4 RBC 4.76 Hgb 15.1 Hct 42.6 MCV 89.5 MCH 31.7 MCHC 35.4 RDW Std Deviation 37.7 RDW Coeff of Tyler 11.6 Plt Count 249 MPV 8.8 Immature Gran % (Auto) 0.400 Neut % (Auto) 56.0 Lymph % (Auto) 35.9 Bollinger % (Auto) 5.2 Eos % (Auto) 1.8 Baso % (Auto) 0.7 Absolute Neuts (auto) 5.3 Absolute Lymphs (auto) 3.38 Nucleated RBC % 0 Sodium 141 Potassium 3.7 Chloride 108 H Carbon Dioxide 27.0 Anion Gap 6 BUN 26 H Creatinine 0.83 Estim Creat Clear Calc 82.41 Est GFR (MDRD) Af Amer 119 Est GFR (MDRD) Non-Af 98 BUN/Creatinine Ratio 31.4 H Glucose 114 H Calcium 9.1 Troponin I High Sens 5 4 Radiography Diagnostic Testing: Clinical Impression(s) from Imaging Studies Chest X-Ray 04/07/23 17:20 IMPRESSION: No radiographic evidence of acute cardiopulmonary disease. Electronically Signed: Augustus Nash MD at 17:43 EDT , EKG Initial EKG: Comments: My independent interpretation the patient's EKG done for chest pain shows a normal sinus rhythm with mild sinus arrhythmia. No ventricular ectopy. No acute ST elevation or depression. SC interval, QRS duration and QTc are normal. Discharge Plan Triage Chief Complaint: Chest Pain ED Provider: Navjot Dave Dx/Rx/DC Orders Clinical Impression: Chest pain, Epigastric pain Instructions: ED Chest Pain, Uncertain Cause Prescriptions: No Action fluoxetine 20 mg tablet 20 mg PO DAILY lisinopril-hydrochlorothiazide 20-12.5 mg tablet 0.5 tab PO DAILY tadalafil [Cialis] 5 mg tablet 5 mg PO DAILY PRN (Reason: sexual activity) meloxicam 15 MG tablet 15 mg PO QHS gabapentin 300 MG capsule 300 mg PO QHS Primary Care Provider: Guy Gama Referrals: Guy Gama, [Primary Care Provider] - 3-5 Days if not improving Disposition Disposition: Home, Self Care
[2023-04-07 18:38] LABS: Anion Gap 6 (5-15); BUN 26 mg/dL (7-18); BUN/Creat Ratio 31.4 RATIO (10-20); Calcium,Total 9.1 mg/dL (8.5-10.1); Chloride 108 mmol/L (98-107); Creatinine, Serum 0.83 mg/dL (0.70-1.30); EST Glomerular Filtration Rate 98 mL/min (>60); Est Glom Filt Rate - Afr Amer 119 mL/min (>60); Estimated Creatinine Clearance 82.41 ml/min; Glucose 114 mg/dL (74-106); Potassium 3.7 mmol/L (3.5-5.1); Sodium Level 141 mmol/L (136-145); Troponin-I HS (w/2H Reflex) 5 pg/mL (3.0-78.0)
[2023-04-07 20:13] LABS: Reflex Troponin-HS? (from REC) Y
[2023-04-07 20:23] VITALS: BP 145/102; PULSE 66; RESP 18; O2SAT 97
[2023-04-07 20:49] LABS: Troponin-I HS 4 pg/mL (3.0-78.0)
[2023-04-07 22:15] VITALS: BP 123/76
== END 2023-04-07 22:15 | disposition home or self-care (01) ==
PROVIDERS: Emergency Provider Emergency Medicine; PCP Family Medicine; Visit Provider Emergency Medicine
DX: R07.9 Chest pain, unspecified (principal); I10 Essential (primary) hypertension; R10.13 Epigastric pain; R05.9 Cough, unspecified
CPT/HCPCS: 71045; 80048; 84484; 85025; 93005; 99283; A4216

== ENCOUNTER → 2023-10-23 | Outpatient (CLI) | payer OTHER, SELFPAY ==
--- OUTSIDE RECORDS SUMMARY | 2023-10-23 09:35 | XMS RPT_ITS | CCD ---
Author Name Unknown Address [address] [place] [address] Organization [facility] Care Team Providers Care Administrative Operations Coordinator Name Role Phone LAYLAKATHLEEN Unavailable Unavailable Results Test Name Value Interpretation Reference Range Facil ity Encounters Encounter Date Encounter Type Care Provider Facility Start: 03-27-2018 End: 08-24-2018 Patient encounter procedure KATHLEEN RICH [facility] Summary Purpose Family History No Family History Records Found Advance Directives No Advanced Directives Records Found Additional Source Comments (unrecognized sect ion and content) No Status Records Found INFORMATION SOURCE (unrecogn ized section and content) FOR RECORDS PERTAINING TO PATIENTS WHO ARE OR HAVE BEEN ENROLLED IN A CHEMICAL DEPENDENCY/SUBSTANCEABUSE PROGRAM, SOME INFORMATION MAY BE OMITTED. This clinical summary was aggregated from multiple sources. Caution should be exercised in using it in the provision of clinical care. This summary normalizes information from multiple sources, and as a consequence, information in this document may materially change the coding, format and clinical context of patient data. In addition, data may be omitted in some cases. CLINICAL DECISIONS SHOULD BE BASED ON THE PRIMARY CLINICAL RECORDS. [employer] provides no warranty or guarantee of the accuracy or completeness of information in this document.
[2023-10-23 12:57] LABS: AST(SGOT) 16 U/L (15-37); Alanine Aminotransfer ALT/SGPT 29 U/L (16-61); Albumin, Serum 3.5 g/dL (3.2-5.0); Alkaline Phosphatase 93 U/L (45-117); Bilirubin, Direct 0.09 mg/dL (0.00-0.30); Cholesterol 236 mg/dL (200); High Density Lipoprotein 36 mg/dL; PSA,Total - Annual Screen 2.06 ng/mL (0.00-4.00); Protein, Total 6.5 g/dL (6.4-8.2); Triglycerides 411 mg/dL
== END | disposition home or self-care (01) ==
LOC: BFHLAB 09:10
PROVIDERS: PCP Family Medicine; Referring Provider Family Medicine; Visit Provider Family Medicine
DX: Z12.5 Encounter for screening for malignant neoplasm of prostate (principal); I10 Essential (primary) hypertension; H35.033 Hypertensive retinopathy, bilateral
CPT/HCPCS: 36415; 80061; 80076; 84153; G0103

== ENCOUNTER → 2023-11-20 | Outpatient (CLI) | payer OTHER, SELFPAY ==
--- NOTE | 2023-11-20 16:09 | RAD_ITS ---
STUDY: X-RAY CHEST REASON FOR EXAM: Male, 68 years old. cough x 2 months TECHNIQUE: Frontal and lateral views of the chest. COMPARISON: 04/07/2023. FINDINGS: The lungs are clear and expanded. There is no demonstrated pleural abnormality. Normal size heart. Normal mediastinum and adilson. Normal visualized pulmonary arteries. Normal visualized aortic arch and descending thoracic aorta. Normal visualized thoracic spine. Normal visualized ribs, clavicles, and shoulders. There is no demonstrated abnormality of the visualized soft tissue structures of the upper abdomen. RAD/Chest PA and Lateral IMPRESSION: Normal x-ray examination of the chest. Electronically Signed: Omid Morrison MD at 18:53 EST ,
== END | disposition home or self-care (01) ==
LOC: MTRAD 16:07
PROVIDERS: PCP Family Medicine; Referring Provider Family Medicine; Visit Provider Family Medicine
DX: R05.9 Cough, unspecified (principal)
CPT/HCPCS: 71046

== ENCOUNTER → 2023-12-27 | Outpatient (CLI) | payer OTHER, SELFPAY ==
--- OUTSIDE RECORDS SUMMARY | 2023-12-27 10:01 | XMS RPT_ITS | CCD ---
Author Name Unknown Address [address] [place] [address] Organization [facility] Care Team Providers Care Academic Tutor Name Role Phone KATHLEEN RICH Unavailable Unavailable Results Test Name Value Interpretation Reference Range Facil ity Encounters Encounter Date Encounter Type Care Provider Facility Start: 03-27-2018 End: 08-24-2018 Patient encounter procedure KATHLEEN RICH [facility] Summary Purpose Family History No [...] BE BASED ON THE PRIMARY CLINICAL RECORDS. [employer] provides no warranty or guarantee of the accuracy or completeness of information in this document.
[2023-12-27 10:33] LABS: AST(SGOT) 18 U/L (15-37); Alanine Aminotransfer ALT/SGPT 26 U/L (16-61); Albumin, Serum 3.7 g/dL (3.2-5.0); Alkaline Phosphatase 104 U/L (45-117); Cholesterol 153 mg/dL (200); Globulin 3.1 g/dL (2.2-4.2); High Density Lipoprotein 45 mg/dL; Protein, Total 6.8 g/dL (6.4-8.2); Triglycerides 67 mg/dL; Very Low Density Lipoprotein 13 mg/dL (5-40)
== END | disposition home or self-care (01) ==
LOC: LAB 10:00
PROVIDERS: PCP Family Medicine; Referring Provider Family Medicine; Visit Provider Family Medicine
DX: E78.5 Hyperlipidemia, unspecified (principal)
CPT/HCPCS: 36415; 80061; 80076

== ENCOUNTER 2024-06-02 12:00 | Outpatient (RCR) | payer SELFPAY ==
--- NOTE | 2024-08-13 09:26 | HP.PT.NRP ---
Patient Information Patient Information: WAQAR MONAHAN was seen in my office for initial evaluation on . The following Plan of Care was established for this patient: Last Seen Last Seen: This patient was last seen in our office . Pertinent comments regarding their Physical therapy will appear below: D/C Chart At this point I will be discontinuing this patient from physical therapy. I would be happy to see this patient again in the future if found appropriate by the physician. Thank you! SILVIA SwensonT
== END 2024-06-02 19:00 | disposition home or self-care (01) ==
LOC: PT 12:00
PROVIDERS: PCP Family Medicine
DX: R69 Illness, unspecified (principal)

== ENCOUNTER → 2024-08-13 | Outpatient (CLI) | payer OTHER, SELFPAY ==
--- NOTE | 2024-08-13 15:04 | RAD_ITS ---
INDICATION: COUGH EXAMINATION/TECHNIQUE: X-RAY - XR Chest 2 Views COMPARISON: Prior study dated: [124 FINDINGS: LINES/DEVICES: None. LUNGS: No consolidation, edema or effusion. No pneumothorax. MEDIASTINUM AND CARDIOVASCULAR STRUCTURES: Cardiac silhouette not enlarged. Central airways and mediastinal contour are unremarkable. BONES AND SOFT TISSUES: Unremarkable. RAD/Chest PA and Lateral IMPRESSION: No radiographic evidence of acute cardiopulmonary disease. Electronically Signed: Jah Salinas MD at 8:33 EDT ,
--- OUTSIDE RECORDS SUMMARY | 2024-08-13 16:36 | XMS RPT_ITS | CCD ---
Author Organization [place] [employer] [facility] Care Team Providers Care Medical Delivery Technician Name Role Phone DON MORRIS Unavailable Unavailable Results Test Name Value Interpretation Reference Range Facil ity Basic Metabolic Panlon 03-30 Anion gap 3 molar conc 12 mmol/L Normal 9-18 [facility] [place] [facility] Comment on above: Performed By: #### C BC, BMP ####[place] [phone] Calcium mass conc 9.4 mg/dL Normal 8.5-10.[address] [facility] Comment on above: Performed By: #### C BC, BMP ####[facility] [phone] Chloride molar conc 100 mmol/L Normal 97-105 [facility] [place] [facility] Comment on above: Performed By: #### C BC, BMP ####[facility] [place] [phone] CO2 molar conc 27 mmol/L Normal 22-30 [facility] [place] [facility] Comment on above: Performed By: #### C BC, BMP ####[facility] [address] [place], [place] [phone] Creatinine mass conc 0.85 mg/dL Normal 0.73-1.22 [facility] [place] [facility] Comment on above: Performed By: #### C BC, BMP ####[facility] [address], [place] [phone] eGFR- Amer. >60 Normal [facility] Comment on above: Performed By: #### C BC, BMP ####[facility] [address] [place], [place] [phone] GFR/1.73 sq M predicted among non-blacks MDRD vol rate/area (S/P/Bld) mL/min/{1.73_m2} Normal [facility] [place] [facility] Comment on above: Result Comment: eGFR (Estimated GFR) Units of measure: mL/min/1.73 meters squaredeGFR is derived from the reexpressed MDRD Study equation using the following parameters: serum creatinine, age, gender and race. The creatinine assay has been calibrated to be traceable to IDMS.An eGFR <60 mL/min/1.73m2 for >3 months is consistent with chronic kidney disease. Refer to KDOQI guidelines for clinical interpretation.In patients with unstable renal function, e.g. those with acute kidney injury, the eGFR may not accurately reflect actual GFR. Performed By: #### Martin BRAVO, BMP ####[facility] [place], [place] [phone] Glucose mass conc 88 mg/dL Normal 74-[address] [facility] Comment on above: Result Comment: The [place] Diabetes Association (ADA) provides guidance for cutoff values for fasting glucose and random glucose. The ADA defines fasting as no caloric intake for at least 8 hours. Fasting plasma glucose results between 100 to 125 mg/dL indicate increased risk for diabetes (prediabetes).Fasting plasma glucose results greater than or equal to 126 mg/dL meet the criteria for diagnosis of diabetes. In the absence of unequivocal hyperglycemia, results should be confirmed by repeat testing. In a patient with classic symptoms of hyperglycemia or hyperglycemic crisis, random plasma glucose results greater than or equal to 200 mg/dL meet the criteria for diagnosis of diabetes.Reference: Standards of Medical Care in Diabetes 2016, [place] Diabetes Association. Diabetes Care. 2016.39(Suppl 1). Performed By: #### C SHELLY, BMP ####[facility] [place], [place] [phone] Potassium molar conc 3.8 mmol/L Normal 3.7-5.1 [facility] [place] [facility] Comment on above: Performed By: #### Martin BRAVO, BMP ####[place] [id number] [place], [place] [phone] Sodium molar conc 139 mmol/L Normal 136-[address] [facility] Comment on above: Performed By: #### C BC, BMP ####[address] [phone] Urea nitrogen mass conc 16 mg/dL Normal 9-24 [facility] [place] [facility] Comment on above: Performed By: #### C BC, BMP ####[address] [phone] CBCon 03-30-2018 Absolute nRBC <0.01 Normal <0.01 [facility] [place] [facility] Comment on above: Performed By: #### C BC, BMP ####[address] [phone] Erythrocyte distribution width Auto Ratio (RBC) 11.6 % Normal 11.5-15.0 [facility] [place] [facility] Comment on above: Performed By: #### C BC, BMP ####[place] [phone] Hematocrit Auto Volume Fraction (Bld) 42.0 % Normal 39.0-51.0 [facility] [place] [facility] Comment on above: Performed By: #### C BC, BMP ####[address] [phone] Hemoglobin mass conc (Bld) 14.5 g/dL Normal 13.0-17.0 [facility] [place] [facility] Comment on above: Performed By: #### C BC, BMP ####[address] [phone] MCH Auto Entitic mass (RBC) 31.7 pG Normal 26.0-34.0 [facility] [place] [facility] Comment on above: Performed By: #### C BC, BMP ####[address], [place] [phone] MCHC Auto mass conc (RBC) 34.5 g/dL Normal 30.5-36.0 [facility] [place] [facility] Comment on above: Performed By: #### Martin BRAVO, BMP ####[address] [place], [place] [phone] MCV Auto Entitic volume (RBC) 91.7 fL Normal 80.0-100.0 [facility] [place] [facility] Comment on above: Performed By: #### Martin BRAVO, BMP ####[address] [place], [place] [phone] Platelet mean volume Auto Entitic volume (Bld) 10.2 fL Normal 9.0-12.7 [facility] [place] [facility] Comment on above: Performed By: #### Martin BRAVO, BMP ####[address] [place], [place] [phone] Platelets Auto #/vol (Bld) 257 10*3/uL Normal 150-400 [facility] [place] [facility] Comment on above: Performed By: #### Martin BRAVO, BMP ####[address] [phone] RBC Auto #/vol (Bld) 4.58 10*6/uL Normal 4.20-6.00 [facility] [place] [facility] Comment on above: Performed By: #### Martin BRAVO, BMP ####[address] [phone] WBC Auto #/vol (Bld) 5.26 10*3/uL Normal 3.70-11.00 [facility] [place] [facility] Comment on above: Performed By: #### Martin BRAVO, BMP ####[address], [place] [phone] CNNURSEon 03-27-2018 CNNURSE Nurse Visit ([facility]) QUES FATIMAH,WAQAR Howard ([id number]) 1955 MDate Time Provider Department03/27/18 10:45 AM [facility] During your visit today, we recorded the following information about you:Don Morris MD 03/28/2018 8:09 AM SignedDone.Don Morris MDReferrafsaneh Provider: DON MORRIS [[id number]]Allergies As of Date: 03/27/2018(No Known Allergies)Date Reviewed: 07/02/2014Reviewed by: Ashlyn Painting LPN - Fully AssessedReason for Visit: Nurse Visit [792]Reason For Visit History RecordedPrimary Visit Diagnosis:Pre-op testing [Z01.818]Prescriptions as of 03/27/2018 Sig: MULTIVITAMIN CAPSULE Take 1 capsule by mouth once * ARGININE HCL (L-ARGININE) ORAL Take 1,000 mg by mouth. ANDRODERM TRANSDERM. Apply as directed. NAPROXEN SODIUM 220 MG CAPSULE Take by mouth. ASPIRIN 81 MG TABLET,DELAYED * Take 81 mg by mouth once chiquita* NIACIN ER 1,000 MG-SIMVASTATI* Take by mouth. COLCHICINE 0.6 MG TABLET Take 0.6 mg by mouth once gama* SULFAMETHOXAZOLE 800 MG-TRIME* Take 1 tablet by mouth twice *Problem List As Of Date: 03/27/2018(None)Follow- up and Disposition History RecordedEncounter Number: [id number] Status:Closed by DON MORRIS MD on 03/28/18 [facility] PROGRESSon 03-27-2018 Protein mass conc HNO ID: [id number] Author: Don Morris Service: (none) Author Type: Physician Type: Progress Notes Filed: 03/28/2018 8:09 AM Note Text: Done. Don Morris MD [facility] Encounters Encounter Date Encounter Type Care Provider Facility Start: 03-27-2018 End: 08-24-2018 Patient encounter procedure DON MORRIS [facility] [place] [facility] Summary Purpose Family History No Family History Records Found Advance Directives No Advanced Directives Records Found Additional Source Comments (unrecognized sect ion and content) No Status Records Found INFORMATION SOURCE (unrecogn ized section and content) DATE CREATED AUTHOR 09/27/2018 [facility] [place] [facility] FOR RECORDS PERTAINING TO PATIENTS WHO ARE [...] BE BASED ON THE PRIMARY CLINICAL RECORDS. [facility] [employer] [facility]. provides no warranty or guarantee of the accuracy or completeness of information in this document.
== END | disposition home or self-care (01) ==
LOC: MTLAB 15:03
PROVIDERS: PCP Family Medicine; Referring Provider Family Medicine; Visit Provider Family Medicine
DX: R05.9 Cough, unspecified (principal)
CPT/HCPCS: 71046; 87070; 87077; 87186; 87205

== ENCOUNTER 2025-02-23 10:30 | Outpatient (RCR) | payer OTHER, SELFPAY ==
--- NOTE | 2024-10-21 13:14 | HP.PTEVAL ---
Patient's Visit Information Visit Information Visit Information: WAQAR MONAHAN is a 69 year old M referred to Physical Therapy by Niya Levine PA-C with a diagnosis of S/P CERVICAL SPINAL FUSION. Date of Evaluation: 10/21/24 Physical Therapist: Raghav Maloney, PT, Cert MDT, OCS Visit Plan Frequency: 2x /Week Duration: 6 Weeks Plan: S/P cervical fusion posterior cervical laminectomy and fusion C3-4-5-5-6 instrumentation,allograft bone with application [employer] 09/21/24 Lifting restriction 3 # PT INTERVENTIONS GRADED CERVICAL ROM ,ISOMETRICS CERVICAL ,STRENGTHENING RUE ,POSTURAL EX'S ,ACTIVITY MODIFICATION Subjective Subjective: This 69 y/o male presents to physical therapy s/p cervical fusion posterior cervical laminectomy and fusion C3-4-5-5-6 instrumentation,allograft bone with [employer] or [employer] 09/21/[address] Cronin at [facility] . Patient d/c on 09/24/24 .Patient used 3 days. Patient KORTNEY on 10/08/24 with lifting restriction 3 #, prescribed percocet medication otherwise tylenol. Patent has had cervical pain with radicular many years ,eventually MRI cervical stenosis /DDD .Prior to surgery tried pain management. Patient prior to surgery had radicular symptoms left arm paresthesia and pain. Currently patient is better with no symptoms in arm left and currently has weakness /pain right UE.Patient is not driving Patient had small infection incision thus on antibiotic. Patient has some tension PÉREZ posterior neck , denies dizziness/nausea/tinnitus. Patient sleeping okay. 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 Right Shoulder: Pain Intensity (Out of 10): 8 Pain Intensity Range: N/A Comment: with lifting Objective Objective: POSTURE: forward posture head forward NEURO:c/o paresthesia/tingling fingers INCISION:well approximate superior scabby CERVICAL ROM: flexion min loss ,extension severe loss ,lateral flexion severe loss ,rotation severe loss right ,left mod/severe MMT: ( peak force) right deltoid 0 ,biceps 10.3 ,tricep 3.8 ,left 4/5 except deltoid 4-/5 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 ROOM KEEPER STRENGTH:( DYNOMETER) right 5 # ,left 60 # Special Tests C/S Radiculapathy - Left Upper limb tension test: Negative C/S Radiculapathy - Right Upper limb tension test: Negative Balance/Special Test Scores Oswestry Neck Score: 34 Goals Goal 1:: Patient to be I with HEP cervical Goal Time Frame: 4-6 Weeks Goal 2:: Patient to improve cervical as alisia for function of recovery driving Goal Time Frame: 4-6 Weeks Goal 3:: Patient demonstrate 50% improvement function with increase strength and ADLS Goal Time Frame: 4-6 Weeks Goal 4:: Patient to improve strength right UE by 5-10# peak force to improve function and ADLS Goal Time Frame: 4-6 Weeks Goal 5:: Patient to improve neck oswestry score by 5 points to improve function and RTW Goal Time Frame: 4-6 Weeks Rehabilitation Potential Physical Therapy Diagnosis: This patient under s/p cervical fusion 09/21 with weakness right UE ,decrease cervical ROM ,pain impairs ADLS and job demands thus benefit from skilled PT Rehabilitation Potential: Good Anticipated Interventions Patient/Client Instruction: Educate patient on: Condition and Plan of Care For the Purpose of:: To decrease pain, To increase ROM, To improve muscle performance and motor function, To improve ability to perform ADL's, To increase tolerance to activity/condition/position, To improve ability of physical actions for home/community/work/leisure, To improve health of tissue, To decrease soft tissue restriction, To increase flexibility/ROM, To assume or resume ADL's and To improve tolerance to ADL's Therapeutic Exercise to Include: Strength training, Postural training, Flexibilty training and Active ROM Comment: RUE For the Purpose of:: To decrease pain, To increase ROM, To improve muscle performance and motor function, To improve ability to perform ADL's, To increase tolerance to activity/condition/position, To improve performance and independence with ADL's, To improve ability of physical actions for home/community/work/leisure, To improve health of tissue, To decrease soft tissue restriction, To increase flexibility/ROM and To improve tolerance to ADL's TENS: Yes IF ES: Yes Thermo therapy (hot pack): Yes Ultrasound (thermal/non thermal): Yes For the Purpose of:: To decrease pain and To increase ROM Text: Thank you for the opportunity to evaluate your patient. For Medicare and Medicare HMO plans, please review the plan of care and approve it. It will need to be FAXED BACK to us at [phone] for Medicare purposes. For Medicare only, by signing this I certify the plan of care. Please let me know if there are questions or concerns regarding this plan of care. Physician Signature: Date:
--- NOTE | 2025-02-14 18:30 | HP.PTDCSUM_ITS ---
Discharge Summary D/C summary: It has been my pleasure to treat WAQAR MONAHAN referred by Niya Levine PA-C, with the diagnosis of S/P CERVICAL SPINAL FUSION for a total of 21 visit(s). Discharge Date: 02/14/25 Please see the following information for a summary of their discharge status. 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) right 42 # ,left 85 # Goals Goal 1:: Patient to be I with HEP cervical Goal Progress: Goal Met Goal 2:: Patient to improve cervical as alisia for function of recovery driving Goal Progress: Goal Met Goal 3:: Patient demonstrate 50% improvement function with increase strength and ADLS Goal Progress: Goal Met Goal 4:: Patient to improve strength right UE by 5-10# peak force to improve function and ADLS( NEW GOAL) Goal Progress: Goal Met Goal 5:: Patient to improve neck oswestry score by 5 points to improve function and RTW Goal Progress: Goal Met Plan Plan: D/C TO HEP D/C Information Discharge Comments: HEP d/c sentence: If there are questions or concerns regarding this patient's physical therapy, please feel free to call me at [phone]. Thank you for the referral of this patient. Sincerely, Raghav Maloney, PT, Cert MDT, OCS Balance/Gait/Functional tests Balance/Special Test Scores Oswestry Neck Score: 34 Improvement % Improvement: 50
--- NOTE | 2025-02-14 18:30 | HP.PTEVAL ---
Patient's Visit Information Visit Information Visit Information: WAQAR MONAHAN is a 69 year old M referred to Physical Therapy by Niya Levine PA-C with a diagnosis of S/P CERVICAL SPINAL FUSION. Date of Evaluation: 11/29/24 Physical Therapist: Raghav Maloney PT, Cert MDT, OCS Visit Plan Frequency: 2x /Week Duration: 6 Weeks Plan: D/C TO HEP Subjective Subjective: This 69 y/o male presents to physical therapy s/p cervical fusion posterior cervical laminectomy and fusion C3-4-5-5-6 instrumentation,allograft bone with [employer] h[employer] 09/21/[address] Cronin at [facility] . Patient d/c on 09/24/24 .Patient used 3 days. Patient KORTNEY on 10/08/24 with lifting restriction 3 #, prescribed percocet medication otherwise tylenol. Patent has had cervical pain with radicular many years ,eventually MRI cervical stenosis /DDD .Prior to surgery tried pain management. Patient prior to surgery had radicular symptoms left arm paresthesia and pain. Currently patient is better with no symptoms in arm left and currently has weakness /pain right UE.Patient is not driving Patient had small infection incision thus on antibiotic. Patient has some tension PÉREZ posterior neck , denies dizziness/nausea/tinnitus. Patient sleeping okay. 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 Right Shoulder: Pain Intensity (Out of 10): 0 Pain Intensity Range: N/A Comment: neck Objective Objective: POSTURE: forward posture head forward NEURO:c/o paresthesia/tingling fingers INCISION:well approximate superior scabby CERVICAL ROM: flexion min loss ,extension severe loss ,lateral flexion severe loss ,rotation severe loss right ,left mod/severe MMT: ( peak force) right deltoid 0 ,biceps 10.3 ,tricep 3.8 ,left 4/5 except deltoid 4-/5 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) right 5 # ,left 60 # Special Tests C/S Radiculapathy - Left Upper limb tension test: Negative C/S Radiculapathy - Right Upper limb tension test: Negative Balance/Special Test Scores Oswestry Neck Score: 34 Goals Goal 1:: Patient to be I with HEP cervical Goal Time Frame: 4-6 Weeks Goal 2:: Patient to improve cervical as alisia for function of recovery driving Goal Time Frame: 4-6 Weeks Goal 3:: Patient demonstrate 50% improvement function with increase strength and ADLS Goal Time Frame: 4-6 Weeks Goal 4:: Patient to improve strength right UE by 5-10# peak force to improve function and ADLS( NEW GOAL) Goal Time Frame: 4-6 Weeks Goal 5:: Patient to improve neck oswestry score by 5 points to improve function and RTW Goal Time Frame: 4-6 Weeks Rehabilitation Potential Physical Therapy Diagnosis: This patient under s/p cervical fusion 09/21 with weakness right UE ,decrease cervical ROM ,pain impairs ADLS and job demands thus benefit from skilled PT Rehabilitation Potential: Good Anticipated Interventions Patient/Client Instruction: Educate patient on: Condition and Plan of Care For the Purpose of:: To decrease pain, To increase ROM, To improve muscle performance and motor function, To improve ability to perform ADL's, To increase tolerance to activity/condition/position, To improve ability of physical actions for home/community/work/leisure, To improve health of tissue, To decrease soft tissue restriction, To increase flexibility/ROM, To assume or resume ADL's and To improve tolerance to ADL's Therapeutic Exercise to Include: Strength training, Postural training, Flexibilty training and Active ROM Comment: RUE For the Purpose of:: To decrease pain, To increase ROM, To improve muscle performance and motor function, To improve ability to perform ADL's, To increase tolerance to activity/condition/position, To improve performance and independence with ADL's, To improve ability of physical actions for home/community/work/leisure, To improve health of tissue, To decrease soft tissue restriction, To increase flexibility/ROM and To improve tolerance to ADL's TENS: Yes IF ES: Yes Thermo therapy (hot pack): Yes Ultrasound (thermal/non thermal): Yes For the Purpose of:: To decrease pain and To increase ROM Text: Thank you for the opportunity to evaluate your patient. For Medicare and Medicare HMO plans, please review the plan of care and approve it. It will need to be FAXED BACK to us at [phone] for Medicare purposes. For Medicare only, by signing this I certify the plan of care. Please let me know if there are questions or concerns regarding this plan of care. Physician Signature: Date:
== END 2025-02-23 19:00 | disposition home or self-care (01) ==
LOC: PT 10:30
PROVIDERS: PCP Family Medicine; Referring Provider Physician Assistant; Visit Provider Physician Assistant
DX: Z98.1 Arthrodesis status (principal)
CPT/HCPCS: 97035; 97110; 97162; 97530

== ENCOUNTER → 2025-07-19 | Outpatient (CLI) | payer MEDICARE, SELFPAY ==
[2025-07-19 15:46] LABS: Hematocrit 42.8 % (40-54); Hemoglobin 14.7 g/dL (13.0-16.5); Immature Granulocytes Count 0.130 X10^3/uL (0.0-0.0); Mean Corp Hgb Conc 34.3 g/dL (32-36); Mean Corpuscular Volume 89.5 fL (80-94); Mean Platelet Vol. 9.2 fl (6.2-12.0); NRBC Flagged by Analyzer 0 % (0-5); POSITIVE DIFFERENTIAL YES; POSITIVE MORPHOLOGY YES; Platelet Count 341 K/mm3 (150-450); RBC Distribution Width CV 11.9 % (11.6-14.6); RBC Distribution Width SD 38.5 fl (35.1-43.9); Red Blood Count 4.78 M/mm3 (4.6-6.2); White Blood Count 14.8 K/mm3 (4.4-11.0)
[2025-07-19 16:35] LABS: Differential Indicated SCAN CRITERIA MET
[2025-07-19 17:05] LABS: AST(SGOT) 16 U/L (<=37); Alanine Aminotransfer ALT/SGPT 17 U/L (<=46); Albumin, Serum 4.2 g/dL (3.4-4.8); Alkaline Phosphatase 104 U/L (40-129); Anion Gap 14 (5-15); BUN 21 mg/dL (4-19); BUN/Creat Ratio 25.8 RATIO (10-20); Calcium,Total 9.5 mg/dL (7.6-11.0); Carbon Dioxide 20.7 mmol/L (21.0-32.0); Chloride 102 mmol/L (98-108); Cholesterol 182 mg/dL (<=200); Globulin 2.8 g/dL (2.2-4.2); Glucose 97 mg/dL (70-99); Low Density Lipoprotein Calc. 101 mg/dL; PSA,Total - Annual Screen 1.47 ng/mL (0.02-4.00); Potassium 3.7 mmol/L (3.3-5.1); Triglycerides 136 mg/dL; Very Low Density Lipoprotein 27 mg/dL (5-40); cholesterol:hdl ratio screen 3.36
[2025-07-19 19:18] LABS: Differential Comment SCANNED
[2025-07-25 12:08] LABS: Testosterone, % Free 2.13 % (1.50-4.20); Testosterone, Free 6.92 ng/dL (5.00-21.00)
== END | disposition home or self-care (01) ==
LOC: MTLAB 11:13
PROVIDERS: PCP Family Medicine; Referring Provider Family Medicine; Visit Provider Family Medicine
DX: I10 Essential (primary) hypertension (principal); E78.5 Hyperlipidemia, unspecified; E29.1 Testicular hypofunction; Z12.5 Encounter for screening for malignant neoplasm of prostate
CPT/HCPCS: 36415; 80053; 80061; 84153; 84402; 84403; 85025; G0103

== ENCOUNTER → 2025-09-08 | Outpatient (CLI) | payer MEDICARE, SELFPAY ==
--- NOTE | 2025-09-08 09:07 | CDU_ITS ---
Reason For Study Reason For Study: Stenosis Rt. Velocities/BP Lt. Velocities/BP Prox CCA 91.2/18.8 cm/sec. Prox CCA 112.1/22.5 cm/sec. Mid CCA 90.0/22.5 cm/sec. Mid CCA 87.6/18.8 cm/sec. Dist CCA 79.1/24.3 cm/sec. Dist CCA 81.4/24.9 cm/sec. Prox ICA 90.5/25.6 cm/sec. Prox ICA 63.0/19.0 cm/sec. Mid ICA 90.5/30.0 cm/sec. Mid ICA 85.0/23.4 cm/sec. Dist ICA 81.7/26.7 cm/sec. Dist ICA 25.0/7.9 cm/sec. Rt. ICA/CCA = 1.0. Lt. ICA/CCA = 1.0. Prox ECA 72.9/12.4 cm/sec. Prox ECA 66.6/5.5 cm/sec. Rt. Vert. 44.7/10.7 cm/sec. Lt. Vert. 72.9/22.3 cm/sec. Right Extracranial There is homogeneous, smooth atherosclerotic plaque noted in the right common carotid artery. There is heterogeneous, irregular atherosclerotic plaque noted in the right internal carotid artery. There is intimal thickening but no significant atherosclerotic plaque noted in the right external carotid artery. Antegrade flow is noted in the right vertebral artery. Left Extracranial There is homogeneous, smooth atherosclerotic plaque noted in the left common carotid artery. There is heterogeneous, irregular atherosclerotic plaque noted in the left internal carotid artery. The atherosclerotic plaque causes acoustic shadowing. There is intimal thickening but no significant atherosclerotic plaque noted in the left external carotid artery. Antegrade flow is noted in the left vertebral artery. Procedure Carotid Duplex 74141. This is a Carotid Duplex examination using B-mode, color flow and specral Doppler. Exam performed in department. VL/Carotid Duplex Ultrasound Interpretation Summary Mild (<50%) stenosis right extracranial internal carotid. Mild (<50%) stenosis left extracranial internal carotid. Patent and antegrade vertebrals bilaterally. Ordering Physician: Guy Gama Referring Physician: Guy Gama Performed By: Laura Gooden, CHANDAN
== END | disposition home or self-care (01) ==
LOC: CVS 09:04
PROVIDERS: PCP Family Medicine; Referring Provider Family Medicine; Visit Provider Family Medicine
DX: I65.23 Occlusion and stenosis of bilateral carotid arteries (principal)
CPT/HCPCS: 93880